=== PATIENT | female | born 1955 | race Caucasian/White ===

== ENCOUNTER → 2023-12-03 12:01 | Outpatient (REF) | payer MEDICARE, OTHER, SELFPAY ==
[2023-12-03 12:47] LABS: % Basophils 0.8 % (0-2); % Eosinophils 1.8 % (0-6); % Immature Granulocytes 0.3 % (0-0.5); % Lymphocytes 18.2 % (20.5-51.1); % Monocytes 10.2 % (1.7-9.3); % Neutrophils 68.7 % (42.2-75.2); Absolute Basophils 0.1 10^3/uL (0-0.2); Absolute Eosinophils 0.1 10^3/uL (0-0.7); Absolute Lymphocytes 1.4 10^3/uL (1.2-3.4); Absolute Monocytes 0.8 10^3/uL (0.1-0.6); Absolute Neutrophils 5.4 10^3/uL (1.4-6.5); Hemoglobin 12.8 g/dL (12.0-16.0); Mean Corp Hgb Conc. 33.7 g/dL (33.0-37.0); Mean Corpuscular Hgb 35.6 pg (27.0-31.0); Mean Corpuscular Volume 105.6 fL (81.0-99.0); Mean Platelet Volume 9.5 fL (7.4-10.4); Nucleated Red Blood Cells % 0 %; Platelet Count 406 10^3/uL (130-400); Red Cell Dist. Width 11.6 % (11.5-14.5); White Blood Cell Count 7.9 10^3/uL (4.8-10.8)
[2023-12-03 13:13] LABS: Iron 113 ug/dl (37-170)
[2023-12-03 13:22] LABS: Percent Saturation 53 % (20-50); Total Iron Binding Capacity 211 ug/dl (265-497)
[2023-12-03 14:10] LABS: Erythrocyte Sed Rate 42 mm/hour (0-20)
[2023-12-06 05:57] LABS: EBV-VCA IgG Antibodies 85.1 U/mL (0.0-21.9); EBV-VCA IgM Antibodies <10.0 U/mL (0.0-43.9)
== END ==
LOC: REG 12:01
PROVIDERS: ATTENDING PHYSICIAN Nurse Practitioner Family
DX: R50.81 Fever presenting with conditions classified elsewhere (principal); G93.32 Myalgic encephalomyelitis/chronic fatigue syndrome; R05.1 Acute cough; E06.9 Thyroiditis, unspecified; E06.3 Autoimmune thyroiditis; M25.50 Pain in unspecified joint; M51.36 Other intervertebral disc degeneration, lumbar region; R00.0 Tachycardia, unspecified
CPT/HCPCS: 36415; 71046; 82728; 83540; 83550; 85025; 85652; 86140; 86663; 86664; 86665

== ENCOUNTER 2023-12-16 07:00 | Day surgery (SDC) | payer MEDICARE, OTHER, SELFPAY ==
[2023-12-16] VITALS (9 sets, daily range): BP systolic 98–148; BP diastolic 61–88; BMI 21.8
[2023-12-16 07:34] LABS: INR 0.89; PT 11.8 Sec (11.4-14.6)
[2023-12-16] MEDS: BACTROBAN NASAL 1 GRAM NASAL (07:34)
[2023-12-16 07:35] LABS: APTT 24.5 Sec (23.4-35.0)
[2023-12-16 07:36] LABS: Blood Urea Nitrogen 18 mg/dl (7-17); Calcium 9.5 mg/dl (8.4-10.2); Carbon Dioxide 28 mmol/L (22-30); Chloride 106 mmol/L (98-107); Estimated Creatinine Clearance 57 ml/min; Glucose 82 mg/dl (70-99); Sodium 137 mmol/L (135-145); eGFR > 60.00
[2023-12-16] MEDS: PERIDEX 0.12% ORAL RINSE 15 ML PO (07:36)
[2023-12-16 07:42] LABS: Hematocrit 34.9 % (37.0-47.0); Hemoglobin 11.9 g/dL (12.0-16.0); Mean Corp Hgb Conc. 34.1 g/dL (33.0-37.0); Mean Corpuscular Hgb 35.4 pg (27.0-31.0); Mean Corpuscular Volume 103.9 fL (81.0-99.0); Mean Platelet Volume 9.8 fL (7.4-10.4); Platelet Count 326 10^3/uL (130-400); Red Blood Cell Count 3.36 10^6/uL (4.20-5.40); Red Cell Dist. Width 12.6 % (11.5-14.5); White Blood Cell Count 11.7 10^3/uL (4.8-10.8)
[2023-12-16] MEDS: NSS 500 IV (08:04)
--- NOTE | 2023-12-16 08:20 | W.SUR.PREOP ---
Pre-Operative Surgical Note
-
I have examined this patient prior to the performance of the scheduled procedure.
The patient's condition is unchanged from the time of the current History and
Physical and the patient is able to undergo the scheduled procedure.
--- NOTE | 2023-12-16 09:38 | W.SUR.POST ---
Surgical Immediate Post Op
Note
Pre Op Diagnosis: GCA
Post Op Diagnosis: same
Procedure Performed: BL TAB
Primary Surgeon: Eleazar
Assist: Paty MARIO
Anesthesia: local and sedation
Estimated Blood Loss: 5cc
Fluids: see anesthesia flow sheet
Drains/Shunts: none
Specimens/Cultures: BL temporal arteries
Doppler/Duplex/Angio (Y/N): Y
Complications: none
Operative Findings: successful biopsy
--- NOTE | 2023-12-16 09:47 | OR.RPT ---
Operative Report
Operative Report
Date of Operation: 12/16/2023
Pre Op Diagnosis:
1.) Bilateral headaches
2.) Elevated inflammatory markers
3.) Suspected temporal arteritis
Post Op Diagnosis:
1.) Bilateral headaches
2.) Elevated inflammatory markers
3.) Suspected temporal arteritis
Procedure: BILATERAL temporal artery biopsies
Surgeon: Luis Enrique Bush III, MD
Dancing Instructor: FABIANO Baig (assisted with all portions of the procedure dictated below, start to finish)
Anesthesia: Sedation/local
Complications: None
Estimated Blood Loss: Minimal
History and Indications for Procedure: 68-year-old female with symptom constellation concerning for temporal arteritis.
Procedure in Detail: Rhonda Colby was correctly identified and placed supine on the operating table. After adequate induction of anesthesia the hair overlying the bilateral temporal regions was shaved. The temporal pulses were palpated bilaterally
and appropriate skin incisions were marked over the temporal pulses bilaterally. The bilateral temporal regions were then prepped and draped in the usual sterile fashion. The patient received preoperative antibiotics. A timeout procedure was
performed with the nursing and anesthesia staff confirming the patient's identity as well as the nature and laterality of the procedure.
Bilateral temporal artery biopsies were performed one at a time in the same manner as follows: Local anesthesia was infiltrated into the skin and subcutaneous tissue at the skin thomas. A skin incision was made over the temporal skin thomas.
Electrocautery and sharp dissection were used to expose the temporal artery. After adequate length of temporal artery had been exposed within the wound bed the proximal and distal ends were ligated with small clips. The intervening artery segment
was transected proximally and distally and removed. The artery segment was identified according to laterality and passed off to the back table to be labeled and sent to pathology. The wound was then closely inspected for hemostasis which was
achieved. The wound was irrigated with saline solution.
Each wound was closed in layers. Skin glue was applied to each incision bilaterally.
The patient tolerated the procedure well and was taken to the recovery room in good condition.
Attestation: I was present and responsible for the entire procedure
Signed:
Luis Enrique Bush III, MD
[facility]
[phone] (cell)
== END 2023-12-16 10:56 | disposition home or self-care (01) ==
LOC: CATH 07:00
PROVIDERS: ATTENDING PHYSICIAN Surgery Vascular Surgery; FAMILY PHYSICIAN Internal Medicine
DX: R51.9 Headache, unspecified (principal); R79.82 Elevated C-reactive protein (CRP)
CPT/HCPCS: 37609; 88305; 80048; 85027; 85610; 85730; 88313

== ENCOUNTER → 2024-01-01 09:45 | Outpatient (REF) | payer MEDICARE, OTHER, SELFPAY ==
[2024-01-01 10:47] LABS: % Basophils 0.4 % (0-2); % Eosinophils 0.8 % (0-6); % Immature Granulocytes 0.4 % (0-0.5); % Lymphocytes 14.4 % (20.5-51.1); % Monocytes 6.5 % (1.7-9.3); % Neutrophils 77.5 % (42.2-75.2); Absolute Eosinophils 0.1 10^3/uL (0-0.7); Absolute Lymphocytes 1.3 10^3/uL (1.2-3.4); Absolute Monocytes 0.6 10^3/uL (0.1-0.6); Hemoglobin 12.7 g/dL (12.0-16.0); Mean Corp Hgb Conc. 32.6 g/dL (33.0-37.0); Mean Corpuscular Hgb 35.3 pg (27.0-31.0); Mean Corpuscular Volume 108.3 fL (81.0-99.0); Mean Platelet Volume 9.7 fL (7.4-10.4); Nucleated Red Blood Cells % 0 %; Platelet Count 274 10^3/uL (130-400); Red Cell Dist. Width 14.2 % (11.5-14.5); White Blood Cell Count 9.1 10^3/uL (4.8-10.8)
[2024-01-01 11:26] LABS: Erythrocyte Sed Rate 15 mm/hour (0-20)
[2024-01-01 11:56] LABS: ALT (SGPT) 50 U/L (0-35); AST (SGOT) 48 U/L (14-36); Alkaline Phosphatase 55 U/L (38-126); Blood Urea Nitrogen 17 mg/dl (7-17); C-Reactive Protein < 5.00 mg/L (0.0-10.00); Calcium 9.9 mg/dl (8.4-10.2); Carbon Dioxide 28 mmol/L (22-30); Chloride 104 mmol/L (98-107); Glucose 92 mg/dl (70-99); Potassium 4.2 mmol/L (3.5-5.1); Sodium 139 mmol/L (135-145); Total Bilirubin 0.5 mg/dl (0.2-1.3); Total Protein 6.3 g/dl (6.3-8.2); eGFR > 60.00
[2024-01-01 12:20] LABS: Hepatitis B Surface Antigen Negative (Negative)
[2024-01-01 12:38] LABS: Hepatitis B Core Ab, Total Negative (Negative); Hepatitis C Antibody Negative (Negative)
[2024-01-03 14:25] LABS: Quantiferon Mitogen minus NIL 3.95 IU/mL; Quantiferon NIL 0.03 IU/mL; Quantiferon Plus TB1 minus NIL 0.01 IU/mL (0.00-0.34); Quantiferon TB Gold Plus Negative (Negative)
== END ==
LOC: REG 09:45
PROVIDERS: ATTENDING PHYSICIAN Physician Assistant; FAMILY PHYSICIAN Internal Medicine
DX: G89.29 Other chronic pain (principal); K75.9 Inflammatory liver disease, unspecified; M25.50 Pain in unspecified joint; M31.6 Other giant cell arteritis; R79.82 Elevated C-reactive protein (CRP); Z22.7 Latent tuberculosis
CPT/HCPCS: 36415; 80053; 85025; 85652; 86140; 86480; 86704; 86803; 87340

== ENCOUNTER → 2024-03-27 09:55 | Outpatient (REF) | payer MEDICARE, OTHER, SELFPAY | LOC: REG 09:55 | PROVIDERS: ATTENDING PHYSICIAN Physician Assistant; FAMILY PHYSICIAN Internal Medicine | DX: M54.41 Lumbago with sciatica, right side (principal) | CPT/HCPCS: 72100; 72200 ==

== ENCOUNTER → 2024-05-25 12:30 | Outpatient (REF) | payer MEDICARE, OTHER, SELFPAY ==
[2024-05-25 13:14] LABS: % Eosinophils 1.9 % (0-6); % Immature Granulocytes 0.4 % (0-0.5); % Lymphocytes 31.3 % (20.5-51.1); % Monocytes 10.4 % (1.7-9.3); Absolute Basophils 0.1 10^3/uL (0-0.2); Absolute Eosinophils 0.2 10^3/uL (0-0.7); Absolute Lymphocytes 2.5 10^3/uL (1.2-3.4); Absolute Monocytes 0.8 10^3/uL (0.1-0.6); Absolute Neutrophils 4.4 10^3/uL (1.4-6.5); Hematocrit 38.6 % (37.0-47.0); Hemoglobin 13.3 g/dL (12.0-16.0); Mean Corp Hgb Conc. 34.5 g/dL (33.0-37.0); Mean Corpuscular Hgb 37.7 pg (27.0-31.0); Mean Corpuscular Volume 109.3 fL (81.0-99.0); Nucleated Red Blood Cells % 0 %; Platelet Count 230 10^3/uL (130-400); Red Blood Cell Count 3.53 10^6/uL (4.20-5.40); White Blood Cell Count 7.9 10^3/uL (4.8-10.8)
[2024-05-25 13:45] LABS: ALT (SGPT) 43 U/L (0-35); AST (SGOT) 55 U/L (14-36); Albumin 4.2 g/dl (3.5-5.0); Alkaline Phosphatase 47 U/L (38-126); Blood Urea Nitrogen 15 mg/dl (7-17); Calcium 10.8 mg/dl (8.4-10.2); Carbon Dioxide 27 mmol/L (22-30); Chloride 106 mmol/L (98-107); Glucose 81 mg/dl (70-99); Potassium 3.7 mmol/L (3.5-5.1); Sodium 138 mmol/L (135-145); Total Bilirubin 0.4 mg/dl (0.2-1.3); Total Protein 6.2 g/dl (6.3-8.2); eGFR > 60.00
[2024-05-25 13:58] LABS: C-Reactive Protein < 5.00 mg/L (0.0-10.00)
[2024-05-25 14:21] LABS: Erythrocyte Sed Rate 7 mm/hour (0-20)
== END ==
LOC: REG 12:30
PROVIDERS: ATTENDING PHYSICIAN Internal Medicine; FAMILY PHYSICIAN Family Medicine
DX: M31.6 Other giant cell arteritis (principal); Z51.81 Encounter for therapeutic drug level monitoring
CPT/HCPCS: 36415; 80053; 85025; 85652; 86140

== ENCOUNTER → 2024-08-05 06:37 | Outpatient (REF) | payer MEDICARE, OTHER, SELFPAY | LOC: PAVMRI 06:37 | PROVIDERS: ATTENDING PHYSICIAN Family Medicine | DX: M54.16 Radiculopathy, lumbar region (principal) | CPT/HCPCS: 72148 ==

== ENCOUNTER → 2024-08-14 14:47 | Outpatient (REF) | payer MEDICARE, OTHER, SELFPAY ==
[2024-08-14 15:36] LABS: % Basophils 1.3 % (0-2); % Eosinophils 1.5 % (0-6); % Monocytes 10.9 % (1.7-9.3); % Neutrophils 49.3 % (42.2-75.2); Absolute Basophils 0.1 10^3/uL (0-0.2); Absolute Eosinophils 0.1 10^3/uL (0-0.7); Absolute Lymphocytes 1.7 10^3/uL (1.2-3.4); Absolute Monocytes 0.5 10^3/uL (0.1-0.6); Absolute Neutrophils 2.3 10^3/uL (1.4-6.5); Hematocrit 40.9 % (37.0-47.0); Hemoglobin 14.1 g/dL (12.0-16.0); Mean Corp Hgb Conc. 34.5 g/dL (33.0-37.0); Mean Corpuscular Hgb 37.8 pg (27.0-31.0); Mean Corpuscular Volume 109.7 fL (81.0-99.0); Mean Platelet Volume 9.9 fL (7.4-10.4); Nucleated Red Blood Cells % 0 %; Platelet Count 240 10^3/uL (130-400); Red Blood Cell Count 3.73 10^6/uL (4.20-5.40); Red Cell Dist. Width 11.7 % (11.5-14.5); White Blood Cell Count 4.7 10^3/uL (4.8-10.8)
[2024-08-14 15:37] LABS: % Basophils 1.1 % (0-2); % Eosinophils 1.3 % (0-6); % Immature Granulocytes 0.2 % (0-0.5); % Lymphocytes 37.3 % (20.5-51.1); % Monocytes 11.5 % (1.7-9.3); % Neutrophils 48.6 % (42.2-75.2); Absolute Basophils 0.1 10^3/uL (0-0.2); Absolute Eosinophils 0.1 10^3/uL (0-0.7); Absolute Lymphocytes 1.7 10^3/uL (1.2-3.4); Absolute Monocytes 0.5 10^3/uL (0.1-0.6); Absolute Neutrophils 2.2 10^3/uL (1.4-6.5); Hematocrit 39.9 % (37.0-47.0); Hemoglobin 13.8 g/dL (12.0-16.0); Mean Corp Hgb Conc. 34.6 g/dL (33.0-37.0); Mean Corpuscular Hgb 37.9 pg (27.0-31.0); Mean Corpuscular Volume 109.6 fL (81.0-99.0); Mean Platelet Volume 10.1 fL (7.4-10.4); Nucleated Red Blood Cells % 0 %; Platelet Count 230 10^3/uL (130-400); Red Blood Cell Count 3.64 10^6/uL (4.20-5.40); Red Cell Dist. Width 11.8 % (11.5-14.5); White Blood Cell Count 4.5 10^3/uL (4.8-10.8)
[2024-08-14 16:03] LABS: ALT (SGPT) 34 U/L (0-35); AST (SGOT) 37 U/L (14-36); Albumin 4.2 g/dl (3.5-5.0); Alkaline Phosphatase 43 U/L (38-126); Blood Urea Nitrogen 19 mg/dl (7-17); Calcium 9.5 mg/dl (8.4-10.2); Carbon Dioxide 28 mmol/L (22-30); Chloride 108 mmol/L (98-107); Glucose 88 mg/dl (70-99); Potassium 4.5 mmol/L (3.5-5.1); Sodium 143 mmol/L (135-145); Total Bilirubin 0.5 mg/dl (0.2-1.3); Total Cholesterol 303 mg/dl (50-199); Total Protein 6.1 g/dl (6.3-8.2); Triglyceride 110 mg/dl (10-149); Very Low Density Lipoprotein 22 mg/dl (0-30); eGFR > 60.00
[2024-08-14 16:05] LABS: C-Reactive Protein < 5.00 mg/L (0.0-10.00)
[2024-08-14 16:14] LABS: HDL Cholesterol 144 mg/dl; LDL Cholesterol, Calculated 137 mg/dl
[2024-08-14 16:18] LABS: Free T4 0.54 ng/dl (0.78-2.19)
[2024-08-14 16:32] LABS: TSH 1.97 uIU/ml (0.47-4.68)
[2024-08-14 16:56] LABS: Erythrocyte Sed Rate 8 mm/hour (0-20)
== END ==
LOC: REG 14:47
PROVIDERS: ATTENDING PHYSICIAN Family Medicine; FAMILY PHYSICIAN Internal Medicine
DX: E05.90 Thyrotoxicosis, unspecified without thyrotoxic crisis or storm (principal); R79.89 Other specified abnormal findings of blood chemistry; M31.6 Other giant cell arteritis; Z51.81 Encounter for therapeutic drug level monitoring
CPT/HCPCS: 36415; 80053; 80061; 84439; 84443; 85025; 85652; 86140

== ENCOUNTER 2024-09-28 12:15 | Emergency (ER) | payer MEDICARE, OTHER, SELFPAY ==
[2024-09-28 12:21] VITALS: BP 153/95
--- NOTE | 2024-09-28 13:44 | ED.GENMED ---
History of Present Illness
General
Chief Complaint: Back Pain
Source: patient
Exam Limitations: none
Time Seen by Provider: 09/28/24 13:14
Nursing documentation reviewed up to this point in time: agreed with
History of Present Illness
History of Present Illness:
Patient with history of chronic lower back, presents to ED secondary to worsening left lower back radiating down left leg with numbness sensation, after mechanical fall 2 weeks ago at home. After the fall, patient was evaluated by her pain
practice management consultant who performed injection into her back, which unfortunately has not given her much relief. Denies fever or chills. Patient reports left leg weakness, which has been chronic, but appears to have gone a little bit worse. Denies
urinary or bowel incontinence. Patient has taken Tylenol at home with minimal relief in symptoms.
Past History
Past History
ED Past Medical History: None
Social History
Tobacco: Non-smoker
Personal:
Employment: Employed
Review of Systems
Review of Systems
Allergies reviewed?: Yes
All Other Systems: ROS reviewed and negative except as documented in HPI and ROS
Constitutional: Reports no symptoms
EENT: Reports no symptoms
ABD/GI: Reports no symptoms; Denies nausea or vomiting
: Reports no symptoms; Denies incontinence
Musculoskeletal: Reports back pain
Skin: Reports no symptoms
Neurological: Reports weakness and numbness
Phy Exam
Physical Exam
Physical Exam:
Physical Exam
General: mild painful distress, not acutely ill. afebrile
Head: nc/at. eomi
Neck: supple. normal range of motion.
Abdomen: normal bowel sounds. not tender.
Back: no midline tenderness. mild focal left lower back tenderness at level of L5/S1
Neuro: alert and oriented x 3. mild LLE motor weakness (4/5) with great pain in back during exam. normal gait.
Skin: no rash
Psychiatric: well kept. interactive and cooperative
Extremities: no edema. no calf tenderness.
Course
Orders/Labs/Results
Orders:
Orders
09/28/24 13:43
Dexamethasone Pf [Decadron] 10 mg PO NOW STA
Oxycodone/Acetaminophen [Percocet 5/325] 1 tablet PO NOW STA
CR Lumbar Spine Comp Min 4 Vw* Urgent
Comment:
Reason For Exam: trauma to lower back from fall onto buttocks
Vital Signs
Initial and Last Documented VS:
Initial Vital Signs
Temp Pulse Resp BP Pulse Ox
98.5 F 72 18 153/95 100
09/28/24 12:21 09/28/24 12:21 09/28/24 12:21 09/28/24 12:21 09/28/24 12:21
Last Documented Vital Signs
Temp Pulse Resp BP Pulse Ox
98.5 F 72 18 153/95 100
09/28/24 12:21 09/28/24 12:21 09/28/24 12:21 09/28/24 12:21 09/28/24 12:21
MDM/Problems Addressed
MDM/Problems Addressed:
X-ray: likely acute L4 compression fx. Patient otherwise remains neurologically intact and reports moderate improvement in pain with medicine provided. As such, patient will be discharged home, to the care of her , with recommendation to
follow-up with her primary care physician and/or pain medicine specialist for reevaluation. Vertebroplasty procedure discussed with patient and family, to be discussed further with her primary care physician.
*Critical Care Note
Total Time (30-74mins, 75-104mins- exclusive of procedures): Not Applicable
ED Attending Note
-
Portions of this chart may have been created with voice recognition software.� Occasional wrong word or��sound alike� substitutions may have occurred due to the inherent limitations of voice recognition software.
Discharge Plan
Departure
Patient Disposition: Home (Routine Discharge)
Date of Disposition: 09/28/24
Time of Disposition: 15:12
Patient with high blood pressure during this ER visit?: Yes
Discharge Problem:
Fracture of lumbar spine
Instructions: Vertebral Compression Fracture ED, Vertebroplasty and kyphoplasty
Prescriptions:
New
oxycodone-acetaminophen [Percocet] 5-325 mg Tablet
1 tab PO Q6HPRN PRN (Reason: pain) Qty: 12 0RF
No Action
trazodone 50 mg Tablet
50 mg PO HS
valacyclovir [Valtrex] 500 mg Tablet
500 mg PO DAILY
Multivitamin 50 Plus Tablet
1 tab PO DAILY
Lexapro 25 mg tablet
25 mg PO DAILY
prednisone 60 mg tablet
60 mg PO DAILY
tramadol 50 mg Tablet
50 mg PO DAILY AT 0700 PRN (Reason: body aches )
Referrals:
Jarod Draper MD [Family Provider] -
Activity Restrictions/Additional Instructions:
As discussed, please follow-up with your primary care physician and/or dial painter for further evaluation and treatment. Your prescription has been sent electronically to [facility] pharmacy in [place].
Interventions
Interventions:
*Risk Screen - Suicide Last Done: 09/28/24 12:21
*General Assessment Last Done: 09/28/24 12:21
*Neglect/Abuse Screening Last Done: 09/28/24 12:21
*Nursing Disposition Last Done: 09/28/24 15:39
ED-Musculoskeletal Assessment Last Done: 09/28/24 15:40
Discharge Date and Time
Discharge Date/Time: 09/28/24 15:40
Print Language: BENGALI
[2024-09-28] MEDS: DECADRON 10 MG PO (13:57)
[2024-09-28] MEDS: PERCOCET 5/325 1 TABLET PO (13:57)
== END 2024-09-28 15:40 | disposition home or self-care (01) ==
LOC: EMR 12:15
PROVIDERS: EMERGENCY PHYSICIAN Emergency Medicine; FAMILY PHYSICIAN Internal Medicine Gastroenterology
DX: S32.048A Other fracture of fourth lumbar vertebra, initial encounter for closed fracture (principal); W19.XXXA Unspecified fall, initial encounter
CPT/HCPCS: 99283; 72110

== ENCOUNTER → 2024-10-14 20:43 | Outpatient (REF) | payer MEDICARE, OTHER, SELFPAY | LOC: MRI 3T 20:43 | PROVIDERS: ATTENDING PHYSICIAN Anesthesiology Pain Medicine; FAMILY PHYSICIAN Family Medicine | DX: M54.16 Radiculopathy, lumbar region (principal) | CPT/HCPCS: 72148 ==

== ENCOUNTER → 2024-10-30 09:52 | Outpatient (REF) | payer MEDICARE, OTHER, SELFPAY | LOC: RAD 09:52 | PROVIDERS: ATTENDING PHYSICIAN Family Medicine | DX: S32.040D Wedge compression fracture of fourth lumbar vertebra, subsequent encounter for fracture with routine healing (principal); Z78.0 Asymptomatic menopausal state | CPT/HCPCS: 77080 ==

== ENCOUNTER → 2024-11-20 13:38 | Outpatient (REF) | payer MEDICARE, OTHER, SELFPAY ==
[2024-11-20 14:56] LABS: % Basophils 1.1 % (0-2); % Eosinophils 1.4 % (0-6); % Immature Granulocytes 0.5 % (0-0.5); % Lymphocytes 35.1 % (20.5-51.1); % Monocytes 13.3 % (1.7-9.3); % Neutrophils 48.6 % (42.2-75.2); Absolute Basophils 0.1 10^3/uL (0-0.2); Absolute Eosinophils 0.1 10^3/uL (0-0.7); Absolute Lymphocytes 1.6 10^3/uL (1.2-3.4); Absolute Monocytes 0.6 10^3/uL (0.1-0.6); Absolute Neutrophils 2.2 10^3/uL (1.4-6.5); Hematocrit 42.9 % (37.0-47.0); Hemoglobin 14.7 g/dL (12.0-16.0); Mean Corp Hgb Conc. 34.3 g/dL (33.0-37.0); Mean Corpuscular Hgb 37.3 pg (27.0-31.0); Mean Corpuscular Volume 108.9 fL (81.0-99.0); Mean Platelet Volume 11.1 fL (7.4-10.4); Nucleated Red Blood Cells % 0 %; Platelet Count 179 10^3/uL (130-400); Red Blood Cell Count 3.94 10^6/uL (4.20-5.40); Red Cell Dist. Width 11.9 % (11.5-14.5); White Blood Cell Count 4.4 10^3/uL (4.8-10.8)
[2024-11-20 15:32] LABS: ALT (SGPT) 32 U/L (0-35); AST (SGOT) 36 U/L (14-36); Albumin 4.9 g/dl (3.5-5.0); Alkaline Phosphatase 60 U/L (38-126); Blood Urea Nitrogen 16 mg/dl (7-17); Calcium 10.2 mg/dl (8.4-10.2); Carbon Dioxide 30 mmol/L (22-30); Chloride 103 mmol/L (98-107); Glucose 88 mg/dl (70-99); Potassium 4.7 mmol/L (3.5-5.1); Sodium 139 mmol/L (135-145); eGFR > 60.00
[2024-11-20 15:43] LABS: C-Reactive Protein < 5.00 mg/L (0.0-10.00)
[2024-11-20 15:53] LABS: Erythrocyte Sed Rate 6 mm/hour (0-20)
== END ==
LOC: REG 13:38
PROVIDERS: ATTENDING PHYSICIAN Internal Medicine; FAMILY PHYSICIAN Family Medicine
DX: M31.6 Other giant cell arteritis (principal)
CPT/HCPCS: 36415; 80053; 85025; 85652; 86140

== ENCOUNTER → 2024-12-04 12:08 | Outpatient (REF) | payer MEDICARE, OTHER, SELFPAY | LOC: PAVMRI 12:08 | PROVIDERS: ATTENDING PHYSICIAN Anesthesiology Pain Medicine; FAMILY PHYSICIAN Family Medicine | DX: S32.000A Wedge compression fracture of unspecified lumbar vertebra, initial encounter for closed fracture (principal); M48.061 Spinal stenosis, lumbar region without neurogenic claudication | CPT/HCPCS: 72148 ==

== ENCOUNTER 2025-02-12 06:54 | Outpatient (RCR) | payer MEDICARE, OTHER, SELFPAY | END 2025-02-12 23:59 | disposition home or self-care (01) | LOC: RPT 06:54 | PROVIDERS: ATTENDING PHYSICIAN Family Medicine | DX: M54.16 Radiculopathy, lumbar region (principal); M48.062 Spinal stenosis, lumbar region with neurogenic claudication; M51.372 Other intervertebral disc degeneration, lumbosacral region with discogenic back pain and lower extremity pain; Z73.6 Limitation of activities due to disability | CPT/HCPCS: 97010; 97110; 97162 ==

== ENCOUNTER → 2025-02-24 14:05 | Outpatient (REF) | payer MEDICARE, OTHER, SELFPAY ==
[2025-02-24 16:34] LABS: C-Reactive Protein < 5.00 mg/L (0.0-10.00)
[2025-02-24 16:35] LABS: Erythrocyte Sed Rate 5 mm/hour (0-20)
[2025-02-24 16:50] LABS: Vitamin D, 25-OH*** 45.8 ng/mL (30-80)
== END ==
LOC: REG 14:05
PROVIDERS: ATTENDING PHYSICIAN Physician Assistant; FAMILY PHYSICIAN Family Medicine
DX: E55.9 Vitamin D deficiency, unspecified (principal); M31.6 Other giant cell arteritis
CPT/HCPCS: 36415; 82306; 85652; 86140

== ENCOUNTER → 2025-06-10 15:07 | Outpatient (REF) | payer MEDICARE, OTHER, SELFPAY ==
[2025-06-10 16:05] LABS: Hematocrit 41.5 % (37.0-47.0); Hemoglobin 13.6 g/dL (12.0-16.0); Mean Corp Hgb Conc. 32.8 g/dL (33.0-37.0); Mean Corpuscular Volume 110.4 fL (81.0-99.0); Nucleated Red Blood Cells % 0 %; Platelet Count 234 10^3/uL (130-400); Red Cell Dist. Width 13.4 % (11.5-14.5)
[2025-06-10 16:16] LABS: ALT (SGPT) 62 U/L (0-35); AST (SGOT) 65 U/L (14-36); Albumin 4.3 g/dl (3.5-5.0); Alkaline Phosphatase 37 U/L (38-126); Blood Urea Nitrogen 18 mg/dl (7-17); Calcium 9.1 mg/dl (8.4-10.2); Carbon Dioxide 29 mmol/L (22-30); Chloride 107 mmol/L (98-107); Glucose 84 mg/dl (70-99); Potassium 4.1 mmol/L (3.5-5.1); Sodium 139 mmol/L (135-145); Total Protein 6.3 g/dl (6.3-8.2); eGFR > 60.00
[2025-06-10 16:22] LABS: C-Reactive Protein < 5.00 mg/L (0.0-10.00)
[2025-06-10 16:38] LABS: Vitamin D, 25-OH*** 48.1 ng/mL (30-80)
== END ==
LOC: REG 15:07
PROVIDERS: ATTENDING PHYSICIAN Internal Medicine; FAMILY PHYSICIAN Family Medicine
DX: M81.0 Age-related osteoporosis without current pathological fracture (principal); R79.82 Elevated C-reactive protein (CRP)
CPT/HCPCS: 36415; 80053; 82306; 85025; 85652; 86140

== ENCOUNTER → 2025-06-21 16:56 | Outpatient (REF) | payer MEDICARE, OTHER, SELFPAY | LOC: RAD 16:56 | PROVIDERS: ATTENDING PHYSICIAN Family Medicine | DX: R10.13 Epigastric pain (principal); R10.30 Lower abdominal pain, unspecified | CPT/HCPCS: 76700; 76705 ==

== ENCOUNTER → 2025-09-17 14:02 | Outpatient (REF) | payer MEDICARE, OTHER, SELFPAY ==
[2025-09-17 14:56] LABS: ALT (SGPT) 32 U/L (0-35); AST (SGOT) 50 U/L (14-36); Albumin 4.2 g/dl (3.5-5.0); Alkaline Phosphatase 38 U/L (38-126); Blood Urea Nitrogen 22 mg/dl (7-17); Calcium 9.8 mg/dl (8.4-10.2); Carbon Dioxide 29 mmol/L (22-30); Chloride 104 mmol/L (98-107); Glucose 81 mg/dl (70-99); Potassium 5.2 mmol/L (3.5-5.1); Sodium 136 mmol/L (135-145); Total Protein 6.3 g/dl (6.3-8.2); eGFR > 60.00
== END ==
LOC: REG 14:02
PROVIDERS: ATTENDING PHYSICIAN Internal Medicine; FAMILY PHYSICIAN Family Medicine
DX: M31.6 Other giant cell arteritis (principal); Z51.81 Encounter for therapeutic drug level monitoring
CPT/HCPCS: 36415; 80053